=== PATIENT | male | born 1940 | race Caucasian/White ===

== ENCOUNTER 2017-08-20 06:35 | Day surgery (SDC) | payer MEDICARE, OTHER ==
[~2017-08-20] VITALS: Ht 172.7 cm; Wt 104.8 kg
[~2017-08-20 06:35] MED LIST: AMITRIPTYLINE H25 MG PO; ASPIR-LOW81 MG PO; FISH OIL 1,0001 EAC3 PO; FLOVENT DISKUS50 MCG INH; GLUCOPHAGE500 MG PO; LEVO-T125 MCG PO; LISINOPRIL10 MG PO; MEDROL4 M1 PO; MELOXICAM15 MG PO; OMEPRAZOLE20 M1 PO; VENTOLIN HFA18 GM INH; VOLTAREN100 GM TOP; VORICONAZOLE200 MG PO
--- NOTE | 2017-08-20 08:28 | NUR ---
08/20/17 0828 Caitlin Mejia 0809 RESP EVEN AND UNLABORED. PT AWAKE OFF AND ON. 0818 O2 REMOVED, PT DRINKING SMALL SIPS OF WATER. 0821 AT BEDSIDE.
--- NOTE | 2017-08-21 10:43 | OR ---
[facility] [address] [place], [place] [address] Signed DATE OF OPERATION: 08/20/2017 SURGEON: Contreras Murphy MD PREOPERATIVE DIAGNOSES: 1. Bowel habit changes with rectal bleeding. 2. Colonoscopy, December 2016, hyperplastic polyp x1 and diverticulosis. POSTOPERATIVE DIAGNOSIS: Moderately severe ulcerative colitis of rectum, sigmoid, and left colon. PROCEDURE: Total colonoscopy to cecum with biopsies. ANESTHESIA: Intravenous sedation, fentanyl 100 mcg, Versed 4 mg. INDICATION: This 76-year-old white man is a patient of Dr. Castañeda and known to me from the past. He underwent colonoscopy in December of 2016 by me, which showed hyperplastic polyp x1 as well as diverticulosis, but no other abnormalities. In the past few months, he has had complaints of episodic rectal bleeding and some amount of perianal soilage and leakage. He has not had diarrhea per se. Digital rectal examination shows no rectal mass. There was a small amount of blood noted, however. He is admitted at this time to undergo colonoscopy to better characterize the problem, understand the risks of bleeding, infection, and perforation. FINDINGS: Moderately severe ulcerative colitis was noted, which included the rectum, sigmoid and portion of the left colon. The remaining colon appeared reasonably normal. He had diverticulosis of the sigmoid and left colon. No sign of polyps. PROCEDURE NOTE: The patient was brought to the endoscopy suite and placed in lateral decubitus position, given intravenous sedation to the point of slurred speech and nystagmus. Digital rectal examination showed no anorectal mass. An Olympus video colonoscope was passed in the rectum and immediately noted was rather significant proctitis. The scope was manipulated throughout the colon noting diverticular changes of the sigmoid and left colon, ultimately advancing the scope to the cecal area. The right colon and cecum appeared normal. Biopsies were obtained of the cecum. The scope was withdrawn and Electronically Signed By: CONTRERAS MURPHY MD 08/21/17 1043 PATIENT NAME: CLAUDIA MONROY OPERATIVE REPORT DATE OF : 40 PHYSICIAN: CONTRERAS MURPHY MD REPORT #: [id number] REPORT IS CONFIDENTIAL AND NOT TO BE RELEASED WITHOUT AUTHORIZATION [facility] [address] [place], [place] [address] Signed close examination of the mucosa showed grossly normal-appearing colon to approximately the mid descending colon, where ulcerative colitis was noted, most consistent with ulcerative colitis. Biopsies were obtained and scope was withdrawn and biopsies taken of the sigmoid, rectosigmoid, and rectum. Retroflexed view was undertaken as well. Scope was removed and the patient was taken to the recovery room in good condition. CONCLUDING DIAGNOSIS: Colitis, most likely representing ulcerative colitis. PLAN: Initiate prednisone 40 mg p.o. daily with a tapering schedule. He will continue with omeprazole. We will additionally start mesalamine 2.4 g daily (Lialda). He will see me back in 2 to 4 weeks. MD BENJAMIN Shaw/LELA /[id number] cc: Lupillo Castañeda DO Electronically Signed By: CONTRERAS MURPHY MD 08/21/17 1043 PATIENT NAME: CLAUDIA MONROY OPERATIVE REPORT DATE OF : 40 PHYSICIAN: CONTRERAS MURPHY MD REPORT #: [id number] REPORT IS CONFIDENTIAL AND NOT TO BE RELEASED WITHOUT AUTHORIZATION
== END 2017-08-20 09:05 | disposition home or self-care (01) ==
LOC: OPS 06:35 → DS 06:35 → OPS 06:45
PROVIDERS: Surgery
PROC: 0DBN8ZX Excision of Sigmoid Colon, Via Natural or Artificial Opening Endoscopic, Diagnostic (ICD-10-PCS; 2017-08-20)
PROC: 0DBP8ZX Excision of Rectum, Via Natural or Artificial Opening Endoscopic, Diagnostic (ICD-10-PCS; 2017-08-20)
PROC: 0DBH8ZX Excision of Cecum, Via Natural or Artificial Opening Endoscopic, Diagnostic (ICD-10-PCS; principal; 2017-08-20 06:45)
DX: K52.9 Noninfective gastroenteritis and colitis, unspecified (principal); E11.9 Type 2 diabetes mellitus without complications; I10 Essential (primary) hypertension; J44.9 Chronic obstructive pulmonary disease, unspecified; K21.9 Gastro-esophageal reflux disease without esophagitis; E03.9 Hypothyroidism, unspecified; E66.01 Morbid (severe) obesity due to excess calories; Z98.890 Other specified postprocedural states; Z87.891 Personal history of nicotine dependence; Z68.35 Body mass index [BMI] 35.0-35.9, adult
CPT/HCPCS: 88305; 99153; G0500; J2250; J3010; J7120

== ENCOUNTER 2023-11-06 14:40 | Inpatient (IN) | payer MEDICARE, OTHER ==
[~2023-11-06] VITALS: Ht 172.7 cm; Wt 93.2 kg
[2023-11-06] MEDS ORDERED: AZITHROMYCIN250 MG PO (14:54)
[2023-11-06] MEDS ORDERED: PREDNISONE20 MG PO (14:54)
[2023-11-06 15:45] LABS: INFLUENZA B NAA NEGATIVE (NEGATIVE); RESPIRATORY SYNCYTIAL VIR NAA NEGATIVE (NEGATIVE)
[2023-11-06] MEDS ORDERED: ALBUTEROL/IPRATROPIUM 3 ML NEB INH ONE (16:15)
[2023-11-06] MEDS ORDERED: SODIUM CHLORIDE 0.9% 500 ML IV PRN (16:15)
[2023-11-06 16:16] LABS: BASOPHILS 0.3 % (0-2); EOSINOPHILS 0.4 % (0-6); HEMOGLOBIN 13.6 g/dL (12.0-18.0); LYMPHOCYTES 6.4 % (24-44); MCH 35.7 (27-36); MCV 105.1 fl (81-99); MONOCYTES 2.6 % (0-12); NEUTROPHILS 90.3 % (39-80); PLATELET COUNT 170 K/uL (140-440); RBC 3.81 M/ul (4.3-5.7); RDW 14.2 (10.5-15.0)
[2023-11-06 16:39] LABS: ALBUMIN 3.6 g/dL (3.4-5.0); ALBUMIN/GLOBULIN RATIO 0.84 (1.1-2.4); ANION GAP 15.4 (7-21); BILIRUBIN, TOTAL 0.5 ng/dL (0.2-1.0); BUN/CREATININE RATIO 11.11 (6.0-28.6); CALCIUM 8.8 mg/dL (8.5-10.1); CREATININE, SERUM 1.26 mg/dL (0.70-1.30); POTASSIUM 4.4 mmol/L (3.5-5.1); PROTEIN, TOTAL 7.9 g/dL (6.4-8.2)
[2023-11-06] MEDS ORDERED: LISINOPRIL5 MG PO (17:50)
[2023-11-06] MEDS ORDERED: LEVOTHYROXINE137 MCG PO (17:51)
[2023-11-06] MEDS ORDERED: TAMSULOSIN HCL0.4 MG PO (17:51)
[2023-11-06] MEDS ORDERED: ENOXAPARIN SODIUM 40 MG/0.4 ML SYR SUB-Q SCH (18:18)
[2023-11-06] MEDS ORDERED: ACETAMINOPHEN 325 MG TAB PO PRN (18:30)
[2023-11-06] MEDS ORDERED: POLYETHYLENE GLYCOL 3350 1 PACKET PO PRN (18:30)
[2023-11-06] MEDS ORDERED: DEXTROSE 5% 1,000 ML IV PRN (18:45)
[2023-11-06] MEDS ORDERED: DEXTROSE 50% 50 ML SYR IV PRN ×2 (18:45)
[2023-11-06] MEDS ORDERED: IBLOOD GLUCOSE TEST STRIP 1 EA TEST XX PRN (18:45)
[2023-11-06] MEDS ORDERED: GLUCAGON,HUMAN RECOMBINANT 1 MG/ML VIAL SUB-Q PRN (18:45)
[2023-11-06] MEDS ORDERED: SODIUM CHLORIDE 0.9% 1,000 ML IV SCH (19:00)
[2023-11-06 19:10] VITALS: BP 172/82
[2023-11-06] MEDS ORDERED: ondansetron HCL 4 MG/2 ML VIAL IV PRN (19:30)
[2023-11-06] MEDS ORDERED: BENZONATATE 100 MG CAP PO PRN (19:30)
[2023-11-06] MEDS ORDERED: ALBUTEROL SULFATE 0.042% 1.25 MG/3 ML VIAL INH PRN (19:30)
[2023-11-06] MEDS ORDERED: ALBUTEROL/IPRATROPIUM 3 ML NEB INH SCH (20:00)
[2023-11-06] MEDS ORDERED: MELATONIN 3 MG TAB PO PRN (21:00)
[2023-11-06] MEDS ORDERED: ALBUTEROL SULFATE 0.083% 3 ML VIAL INH PRN (21:00)
[2023-11-06] MEDS ORDERED: methylPREDNISolone SOD SUCC 40 MG/ML VIAL IV SCH (21:00)
[2023-11-06] MEDS ORDERED: IBLOOD GLUCOSE TEST STRIP 1 EA TEST VI SCH (21:00)
[2023-11-06] MEDS ORDERED: DOXYCYCLINE HYCLATE 100 MG CAP PO SCH (21:00)
[2023-11-06] MEDS ORDERED: INSULIN LISPRO 100 UNIT/ML ML SUB-Q SCH (21:00)
[2023-11-06 23:12] VITALS: BP 135/75
[2023-11-07] VITALS (8 sets, daily range): BP systolic 126–165; BP diastolic 54–78
[2023-11-07 07:17] LABS: BASOPHILS 0.3 % (0-2); HEMATOCRIT 39.6 % (35.0-50.0); HEMOGLOBIN 13.6 g/dL (12.0-18.0); LYMPHOCYTES 11.1 % (24-44); MCH 35.9 (27-36); MCHC 34.3 g/dl (30-36); MCV 104.5 fl (81-99); MONOCYTES 4.3 % (0-12); NEUTROPHILS 84.3 % (39-80); PLATELET COUNT 174 K/uL (140-440); RBC 3.79 M/ul (4.3-5.7)
[2023-11-07 07:39] LABS: ANION GAP 14.6 (7-21); BUN/CREATININE RATIO 13.7 (6.0-28.6); CALCIUM 8.5 mg/dL (8.5-10.1); CREATININE, SERUM 1.24 mg/dL (0.70-1.30); POTASSIUM 4.6 mmol/L (3.5-5.1)
[2023-11-07] MEDS ORDERED: AMOXICILLIN/CLAVULANATE K 875 MG TAB PO SCH (08:00)
[2023-11-07] MEDS ORDERED: SODIUM PHENOLATE MT PRN (08:45)
[2023-11-07] MEDS ORDERED: PHENOL MT PRN (08:45)
[2023-11-07] MEDS ORDERED: lisinopriL 5 MG TAB PO SCH (09:00)
[2023-11-07] MEDS ORDERED: PANTOPRAZOLE SODIUM 40 MG TABEC PO SCH (09:00)
[2023-11-07] MEDS ORDERED: TAMSULOSIN HCL 0.4 MG CAP PO SCH (09:00)
[2023-11-07] MEDS ORDERED: LEVOTHYROXINE SODIUM 137 MCG TAB PO SCH (09:00)
[2023-11-07] MEDS ORDERED: PHARMACY RENAL DOSE ADJUSTMENT 1 DOSE MISC PO SCH (12:00)
[2023-11-08] VITALS (25 sets, daily range): BP systolic 96–164; BP diastolic 47–96
[2023-11-08 05:42] LABS: BASOPHILS 0.1 % (0-2); HEMATOCRIT 40.3 % (35.0-50.0); HEMOGLOBIN 13.8 g/dL (12.0-18.0); LYMPHOCYTES 7.9 % (24-44); MCH 35.7 (27-36); MCHC 34.2 g/dl (30-36); MCV 104.2 fl (81-99); MONOCYTES 3.7 % (0-12); NEUTROPHILS 88.3 % (39-80); PLATELET COUNT 187 K/uL (140-440); RBC 3.87 M/ul (4.3-5.7); RDW 14.2 (10.5-15.0)
[2023-11-08 05:53] LABS: ANION GAP 14.8 (7-21); BUN/CREATININE RATIO 18.65 (6.0-28.6); CALCIUM 8.9 mg/dL (8.5-10.1); CREATININE, SERUM 1.34 mg/dL (0.70-1.30); POTASSIUM 4.8 mmol/L (3.5-5.1)
[2023-11-08] MEDS ORDERED: AZITHROMYCIN250 MG PO (08:45)
[2023-11-08] MEDS ORDERED: PREDNISONE20 MG PO ×2 (08:45→11:32)
[2023-11-08] MEDS ORDERED: METFORMIN HCL500 M1 PO (08:53)
[2023-11-08] MEDS ORDERED: DOXYCYCLINE HY100 MG PO ×2 (11:31→11:34)
[2023-11-08] MEDS ORDERED: AMOX TR-K CLV1 EAC1 PO ×2 (11:32→11:34)
[2023-11-08] MEDS ORDERED: BENZONATATE100 MG PO (11:34)
[2023-11-08] MEDS ORDERED: FUROSEMIDE 20 MG/2 ML VIAL IV ONE ×2 (13:00→16:45)
[2023-11-08] MEDS ORDERED: METOPROLOL TARTRATE 5 MG/5 ML VIAL IV ONE (18:30)
[2023-11-08] MEDS ORDERED: ASPIRIN 81 MG CHEW PO ONE (18:30)
[2023-11-08] MEDS ORDERED: ADENOSINE 3 MG/ML VIAL IV ONE (18:30)
[2023-11-08] MEDS ORDERED: dilTIAZem HCL 25 MG/5 ML VIAL ONE (18:47)
[2023-11-08] MEDS ORDERED: DILTIAZEM HCl/D5W 100 ML IV ONE ×2 (18:47→19:15)
[2023-11-08 18:51] LABS: BASOPHILS 0.1 % (0-2); HEMATOCRIT 45.7 % (35.0-50.0); HEMOGLOBIN 15.5 g/dL (12.0-18.0); LYMPHOCYTES 7.6 % (24-44); MCH 35.6 (27-36); MCV 104.7 fl (81-99); MONOCYTES 5.6 % (0-12); NEUTROPHILS 86.7 % (39-80); PLATELET COUNT 217 K/uL (140-440); RBC 4.36 M/ul (4.3-5.7); RDW 14.2 (10.5-15.0)
[2023-11-08 19:12] LABS: ANION GAP 18.5 (7-21); BUN/CREATININE RATIO 18.86 (6.0-28.6); CALCIUM 9.6 mg/dL (8.5-10.1); CREATININE, SERUM 1.59 mg/dL (0.70-1.30); POTASSIUM 4.5 mmol/L (3.5-5.1)
--- NOTE | 2023-11-08 19:23 | EKG ---
[facility] [address] [facility] [place], [place] [address] Signed Undetermined rhythm Right bundle branch block Left anterior fascicular block Bifascicular block Abnormal ECG No previous ECGs available Confirmed by Kali Montoya ([id number]) on 11/08/2023 7:23:34 PM Electronically Signed By: KALI MONTOYA MD 11/08/231922 PATIENT NAME: CLAUDIA MONROY Electrocardiogram DATE OF : 40 PHYSICIAN: KALI MONTOYA MD REPORT #: [id number] REPORT IS CONFIDENTIAL AND NOT TO BE RELEASED WITHOUT AUTHORIZATION
--- NOTE | 2023-11-08 19:26 | EKG ---
[facility] [address] [facility] [place], [place] [address] Signed Poor data quality, interpretation may be adversely affected Atrial flutter with 2:1 AV conduction Pulmonary disease pattern Left anterior fascicular block ST \T\ T wave abnormality, consider lateral ischemia Abnormal ECG No previous ECGs available Confirmed by Kali Montoya ([id number]) on 11/08/2023 7:26:47 PM Electronically Signed By: KALI MONTOYA MD 11/08/23 1926 PATIENT NAME: CLAUDIA MONROY Electrocardiogram DATE OF : 40 PHYSICIAN: KALI MONTOYA MD REPORT #: [id number] REPORT IS CONFIDENTIAL AND NOT TO BE RELEASED WITHOUT AUTHORIZATION
--- NOTE | 2023-11-08 19:26 | EKG ---
[facility] [address] [facility] [place], [place] [address] Signed Sinus rhythm with 1st degree AV block with occasional premature ventricular complexes and premature atrial complexes Right bundle branch block Left anterior fascicular block Bifascicular block Abnormal ECG No previous ECGs available Confirmed by Kali Montoya ([id number]) on 11/08/2023 7:26:29 PM Electronically Signed By: KALI MONTOYA MD 11/08/231925 PATIENT NAME: CLAUDIA MONROY Electrocardiogram DATE OF : 40 PHYSICIAN: KALI MONTOYA MD REPORT #: [id number] REPORT IS CONFIDENTIAL AND NOT TO BE RELEASED WITHOUT AUTHORIZATION
[2023-11-08] MEDS ORDERED: METOPROLOL TARTRATE 25 MG TAB PO SCH (22:24)
[2023-11-08] MEDS ORDERED: ALBUMIN HUMAN 25% 100 ML BTL IV ONE (22:30)
[2023-11-09] VITALS (26 sets, daily range): BP systolic 96–148; BP diastolic 50–97
[2023-11-09 05:29] LABS: BASOPHILS 0.1 % (0-2); HEMATOCRIT 40.2 % (35.0-50.0); HEMOGLOBIN 13.7 g/dL (12.0-18.0); LYMPHOCYTES 9.6 % (24-44); MCH 35.5 (27-36); MCHC 34.2 g/dl (30-36); MONOCYTES 5.3 % (0-12); PLATELET COUNT 201 K/uL (140-440); RBC 3.87 M/ul (4.3-5.7); RDW 13.9 (10.5-15.0)
[2023-11-09 05:41] LABS: ANION GAP 16.7 (7-21); BUN/CREATININE RATIO 23.07 (6.0-28.6); CALCIUM 8.7 mg/dL (8.5-10.1); CREATININE, SERUM 1.56 mg/dL (0.70-1.30); POTASSIUM 4.7 mmol/L (3.5-5.1)
[2023-11-09] MEDS ORDERED: DILTIAZEM HCl/D5W 100 ML IV SCH (06:45)
[2023-11-09] MEDS ORDERED: FUROSEMIDE 40 MG/4 ML VIAL IV SCH (09:00)
[2023-11-09] MEDS ORDERED: METOPROLOL TARTRATE 25 MG TAB PO SCH (15:00)
--- NOTE | 2023-11-09 15:36 | EKG ---
[facility] [address] [facility] [place] [address] Signed Sinus tachycardia with premature atrial complexes Right bundle branch block Left anterior fascicular block Bifascicular block Abnormal ECG When compared with ECG of 08-NOV-2023 18:45, premature ventricular complexes are no longer present NV interval has decreased Nonspecific T wave abnormality now evident in Anterior leads Confirmed by Kali Montoya ([id number]) on 11/09/2023 3:36:30 PM Electronically Signed By: KALI MONTOYA MD 11/09/23 1536 PATIENT NAME: CLAUDIA MONROY Electrocardiogram DATE OF : 40 PHYSICIAN: KALI MONTOYA MD REPORT #: [id number] REPORT IS CONFIDENTIAL AND NOT TO BE RELEASED WITHOUT AUTHORIZATION
--- NOTE | 2023-11-09 15:38 | EKG ---
[facility] [address] [facility] [place] [address] Signed Left anterior fascicular block T wave abnormality, consider inferior ischemia Abnormal ECG When compared with ECG of 08-NOV-2023 22:12, (Unconfirmed) Confirmed by Kali Montoya ([id number]) on 11/09/2023 3:38:15 PM Electronically Signed By: KALI MONTOYA MD 11/09/23 1538 PATIENT NAME: PORFIRIOCLAUDIA CELESTE Electrocardiogram DATE OF : 40 PHYSICIAN: KALI MONTOYA MD REPORT #: [id number] REPORT IS CONFIDENTIAL AND NOT TO BE RELEASED WITHOUT AUTHORIZATION
--- NOTE | 2023-11-09 15:39 | EKG ---
[facility] [address] [facility] [place] [address] Signed Atrial flutter with variable AV block Left axis deviation Nonspecific intraventricular block Minimal voltage criteria for LVH, may be normal variant ( Jaocb product ) Abnormal ECG When compared with ECG of 09-NOV-2023 01:42, (Unconfirmed) QRS duration has increased ST no longer depressed in Inferior leads ST elevation now present in Lateral leads Confirmed by Kali Montoya ([id number]) on 11/09/2023 3:39:01 PM Electronically Signed By: KALI MONTOYA MD 11/09/23 1539 PATIENT NAME: CLAUDIA MONROY Electrocardiogram DATE OF : 40 PHYSICIAN: KALI MONTOYA MD REPORT #: [id number] REPORT IS CONFIDENTIAL AND NOT TO BE RELEASED WITHOUT AUTHORIZATION
[2023-11-09] MEDS ORDERED: METOPROLOL TARTRATE 50 MG TAB PO ONE (21:00)
[2023-11-10] VITALS (22 sets, daily range): BP systolic 93–149; BP diastolic 49–92
[2023-11-10 05:34] LABS: BASOPHILS 0.2 % (0-2); HEMATOCRIT 43.9 % (35.0-50.0); HEMOGLOBIN 14.7 g/dL (12.0-18.0); MCH 35.1 (27-36); MCHC 33.5 g/dl (30-36); MCV 104.6 fl (81-99); MONOCYTES 9.2 % (0-12); NEUTROPHILS 74.6 % (39-80); PLATELET COUNT 231 K/uL (140-440)
[2023-11-10 05:43] LABS: ANION GAP 12.7 (7-21); BUN/CREATININE RATIO 30.53 (6.0-28.6); CALCIUM 9.1 mg/dL (8.5-10.1); CREATININE, SERUM 1.67 mg/dL (0.70-1.30); POTASSIUM 4.7 mmol/L (3.5-5.1)
[2023-11-10] MEDS ORDERED: predniSONE 20 MG TAB PO SCH (09:00)
[2023-11-10] MEDS ORDERED: METOPROLOL TARTRATE 25 MG TAB PO SCH (09:00)
[2023-11-10] MEDS ORDERED: levalbuterol HCL 1.25 MG/0.5 ML VIAL INH PRN (10:15)
[2023-11-10] MEDS ORDERED: APIXABAN 5 MG TAB PO SCH (10:47)
[2023-11-10] MEDS ORDERED: dilTIAZem HCL 30 MG TAB PO SCH (11:00)
--- NOTE | 2023-11-10 11:06 | EKG ---
[facility] [address] [facility] [place] [address] Signed Atrial flutter with variable AV block Left axis deviation Nonspecific intraventricular block Minimal voltage criteria for LVH, may be normal variant ( Jacob product ) Abnormal ECG When compared with ECG of 09-NOV-2023 06:14, No significant change was found Confirmed by Kali Montoya ([id number]) on 11/10/2023 11:06:39 AM Electronically Signed By: KALI MONTOYA MD 11/10/23 1106 PATIENT NAME: CLAUDIA MONROY Electrocardiogram DATE OF : 40 PHYSICIAN: KALI MONTOYA MD REPORT #: [id number] REPORT IS CONFIDENTIAL AND NOT TO BE RELEASED WITHOUT AUTHORIZATION
[2023-11-10] MEDS ORDERED: IPRATROPIUM BROMIDE 2.5 ML VIAL INH SCH (12:00)
[2023-11-10] MEDS ORDERED: ALBUTEROL/IPRATROPIUM 3 ML NEB INH SCH (14:00)
[2023-11-10 16:24] LABS: MAGNESIUM 2.2 mg/dL (1.8-2.4); PHOSPHORUS, INORGANIC 4.8 mg/dL (2.5-4.9)
[2023-11-11 00:14] VITALS: BP 111/67
[2023-11-11 02:06] VITALS: BP 115/68
[2023-11-11 04:09] VITALS: BP 116/85
[2023-11-11 05:30] LABS: BASOPHILS 0.2 % (0-2); EOSINOPHILS 0.2 % (0-6); HEMATOCRIT 44.5 % (35.0-50.0); LYMPHOCYTES 22.6 % (24-44); MCH 35.2 (27-36); MCHC 33.6 g/dl (30-36); MCV 104.8 fl (81-99); MONOCYTES 8.2 % (0-12); NEUTROPHILS 68.8 % (39-80); PLATELET COUNT 244 K/uL (140-440); RBC 4.25 M/ul (4.3-5.7)
[2023-11-11 05:36] LABS: ANION GAP 15.4 (7-21); BUN/CREATININE RATIO 37.34 (6.0-28.6); CALCIUM 8.8 mg/dL (8.5-10.1); CREATININE, SERUM 1.58 mg/dL (0.70-1.30); POTASSIUM 4.4 mmol/L (3.5-5.1)
[2023-11-11 06:42] VITALS: BP 103/64
[2023-11-11] MEDS ORDERED: dilTIAZem HCL 300 MG CAPCR PO SCH (09:24)
[2023-11-11 10:00] VITALS: BP 107/75
[2023-11-11] MEDS ORDERED: DILTIAZEM ER300 MG PO (11:39)
[2023-11-11] MEDS ORDERED: ELIQUIS5 MG PO (11:39)
[2023-11-11] MEDS ORDERED: TAMSULOSIN HCL0.4 MG PO (11:39)
[2023-11-11] MEDS ORDERED: METOPROLOL TART25 MG PO (11:39)
== END 2023-11-11 13:30 | disposition home health service (06) | DRG 177 ==
LOC: ED 14:40 → MS 18:29 → CCU 18:29
PROVIDERS: Emergency Medicine; ADMIT Family Medicine; ATTEND Family Medicine
PROC: 5A09457 Assistance with Respiratory Ventilation, 24-96 Consecutive Hours, Continuous Positive Airway Pressure (ICD-10-PCS; principal; 2023-11-06)
DX: J69.0 Pneumonitis due to inhalation of food and vomit (principal); I50.33 Acute on chronic diastolic (congestive) heart failure; J96.01 Acute respiratory failure with hypoxia; E87.1 Hypo-osmolality and hyponatremia; N17.9 Acute kidney failure, unspecified; I48.92 Unspecified atrial flutter; J44.1 Chronic obstructive pulmonary disease with (acute) exacerbation; I47.10 Supraventricular tachycardia, unspecified; J44.0 Chronic obstructive pulmonary disease with (acute) lower respiratory infection; I13.0 Hypertensive heart and chronic kidney disease with heart failure and stage 1 through stage 4 chronic kidney disease, or unspecified chronic kidney disease; J15.9 Unspecified bacterial pneumonia; J12.9 Viral pneumonia, unspecified; R73.03 Prediabetes; G47.33 Obstructive sleep apnea (adult) (pediatric); R53.81 Other malaise; K21.9 Gastro-esophageal reflux disease without esophagitis; G89.29 Other chronic pain; M54.9 Dorsalgia, unspecified; I71.40 Abdominal aortic aneurysm, without rupture, unspecified; N18.2 Chronic kidney disease, stage 2 (mild); Z87.891 Personal history of nicotine dependence; Z79.52 Long term (current) use of systemic steroids; Z79.84 Long term (current) use of oral hypoglycemic drugs; Z79.890 Hormone replacement therapy
CPT/HCPCS: 36415; 71045; 80048; 80053; 83036; 83605; 83735; 83880; 84100; 84443; 84484; 85025; 87040; 87502; 92526; 93005; 93010; 93306; 94640; 94667; 94668; 94761; 94762; 96360; 97162; 97164; 97166; 97168; 97530; 99285-25; A9270; J0153; J1650; J1815; J1940; J2405; J2920; J3490; J7030; J7040; J7512; P9047; U0002